=== PATIENT | female | born 1990 | race Caucasian/White ===

== ENCOUNTER 2020-05-17 01:35 | Inpatient (IN) | payer OTHER, SELFPAY ==
[2020-05-17] VITALS (61 sets, daily range): BP systolic 97–142; BP diastolic 55–85; PULSE 84–120; RESP 12–21; TEMP 36.4–37.2; O2SAT 90–100; BMI 36.1
--- NOTE | 2020-05-17 00:36 | PCM.HP.OB ---
- Problem List (1) 39 weeks gestation of Status: Acute (2) Primiparous Status: Acute (3) SROM (spontaneous rupture of membranes) Status: Acute History Date of Admission: 05/17/20 Final DANAE: 05/24/20 Gestational age: 39 Weeks and 0 Days History of this : This is a 29 year-old at 39 wks who presents with SROM for clear fluid at home. Number of Fetus(es): 1 NST - FHR Rate Baby A FHR Category:: Category I History Past Pregnancies: Past Pregnancies Delivery Date Name GA/ Weeks Outcome Route Wt Sex Labor Length Anesthesia Delivery Location Provider FOB Labs: See [facility] record Expected Delivery Method: Spontaneous Vaginal Assessment/Plan All Active Problems 39 weeks gestation of (Acute) Primiparous (Acute) SROM (spontaneous rupture of membranes) (Acute) This is a 29 year-old at 39 wk gestation who presents with SROM for clear fluid at home. - Routine intrapartum care - Pitocin as needed for augmentation - Epidural PRN pain control - GBS negative - Pelvis adequate and EFW expected to be < 4500 g - Anticipate
[2020-05-17 01:14] LABS: ROM Internal Control Test YES-OK TO RESULT pt. (Internal QC)
[2020-05-17 01:15] LABS: ROM Patient Test POSITIVE (Negative)
[2020-05-17] MEDS: Lactated Ringers 1,000 ML 50 ML IV (02:00)
[2020-05-17 02:17] LABS: Absolute Lymphocyte Count 1.38 X10^3/uL (0.83-4.51); Basophil# 0.03 X10^3/uL; Basophil% 0.2 % (0-1); Eosinophil# 0.12 X10^3/uL; Hematocrit 33.8 % (37-47); Hemoglobin 11.5 g/dL (12.0-15.0); Lymphocyte # 1.38 X10^3/ul (4.0); Mean Corpuscular Hgb 31.4 pg (27.0-32.0); Mean Corpuscular Volume 92.3 fL (81-99); Mean Platelet Vol. 9.7 fl (6.2-12.0); Monocyte# 0.88 X10^3/uL; NRBC Flagged by Analyzer 0 % (0-5); Neutrophil # 10.02 X10^3/uL (2.7-7.7); Platelet Count 274 K/mm3 (150-450); RBC Distribution Width CV 14.3 % (11.6-14.6); RBC Distribution Width SD 48.3 fl (35.1-43.9); Red Blood Count 3.66 M/mm3 (4.2-5.4); White Blood Count 12.5 K/mm3 (4.4-11.0)
[2020-05-17] MEDS: Oxytocin 30 units/NS 500 ml 30 UNITS/500 ML IV.SOLN IV (02:30)
[2020-05-17] MEDS: Lactated Ringers 500 ML 999 ML IV (02:35)
[2020-05-17] MEDS: fentaNYL-bupivacaine (epidural) 100 ML BAG EPIDURAL ×3 (03:28→12:34)
[2020-05-17] MEDS: Lactated Ringers 1,000 ML 200 ML IV ×2 (08:15→12:34)
--- NOTE | 2020-05-17 15:10 | PCM.PN.BLA ---
Progress Note At bedside to check on patient. Patient has been pushing for 4 hours. Initially good descent was being made. Now no additional descent noted. Cvx 10/100/0. Unable to perform vacuum assisted delivery given station. Category 2 tracing. Recommend section for arrest of descent. Discussed r/b/a of a section and patient desires to proceed. Consent obtained. STROKE Vital Signs/Narrative: Vital Signs Temp Pulse BP Pulse Ox 05/17/20 13:59 98.8 F 114 H 100 05/17/20 13:58 113 H 128/65 H 95 05/17/20 12:56 108 H 121/65 H 05/17/20 12:30 99.0 F 05/17/20 12:07 104 H 124/67 H
[2020-05-17] MEDS: Sodium Citrate/Citric Acid 30 ML UDC PO (15:35)
[2020-05-17] MEDS: Methylergonovine 0.2 MG/ML Ampul IM (16:34)
[2020-05-17] MEDS: Ketorolac 30 MG/ML Syringe IV ×2 (16:44→23:35)
[2020-05-17] MEDS: Oxytocin 30 units/NS 500 ml 30 UNITS/500 ML IV.SOLN 167 UNITS IV (17:15)
--- NOTE | 2020-05-17 17:24 | OP.PCM_ITS ---
Problem List (1) 39 weeks gestation of Status: Acute (2) Primiparous Status: Acute (3) SROM (spontaneous rupture of membranes) Status: Acute (4) Arrest of descent, delivered, current hospitalization Status: Acute (5) Delivery by section Status: Acute Report of Operation Date of Procedure: 05/17/20 Pre-Operative Diagnosis: 39 week gestation, primparous patient, SROM, arrest of descent Post-Operative Diagnosis: As above Surgery/Procedure Performed:: PLTCS via pfannenstiel incision Description of Surgical Findings:: VFI in vertex presentation. Uterus, bilateral tubes, bilateral ovaries normal-appearing. Normal-appearing placenta with a three-vessel cord. Type of Anesthesia:: Spinal Special Medications: None Specimen's removed: Placenta Drains: [place] Estimated Blood Loss (mL): 900 mL Fluids Replaced: 1000 L Description of Procedure: Patient was taken back to the operating room and a spinal was placed as epidural anesthesia was not adequate. Spinal anesthesia was found to be adequate. She was prepped and draped in the dorsal position with a leftward tilt. A Pfannenstiel skin incision was made with a scalpel and this was carried down to the underlying layer of fascia. The fascia was incised in midline. The fascia was extended lateral using Aguillon scissors. The fascia was dissected off the rectus muscles using combination of sharp and blunt dissection. The rectus muscles were in the midline. The peritoneum was entered sharply with good visualization of the bladder. The peritoneum and incision was extended bluntly. Bladder blade was inserted. A low transverse incision on the uterus was made with a scalpel. Uterine incision was extended bluntly. A nurse provided assistance with a hand from below to elevate the head to the hysterotomy. 's head was delivered easily through the hysterotomy in a flexed position. The shoulders and body of the infant were delivered without any force or delay. A viable female infant was delivered atraumatically. The cord was cut and cut immediately. Infant was handed off to the nursery staff. Cord gases were sent. The placenta was removed with manual extraction. The placenta was normal-appearing. The uterus was exteriorized. The uterus was cleared of all clot and debris. Uterus was closed with Vicryl in running locked fashion. Several additional [id number] sutures were placed for hemostasis. Good hemostasis was noted. The uterus was placed back into the abdomen. Brice was placed over the uterine incision. Due to pain the peritoneum was not closed. The rectus muscles were noted to be hemostatic. The fascia was closed with Vicryl in a running fashion. The subcutaneous space was irrigated and made hemostatic with Bovie cautery. The skin was closed with Monocryl in a subcuticular fashion. Steri-Strips and a dressing were placed. Instrument, needle, sponge counts were correct. The patient was taken recovery room in stable condition. Grafts/Implants Used: None - Complications None - Admit VTE Documentation VTE Present on Admission: No VTE Mechan Device Prophylaxis: SCD's VTE Pharm Prophylaxis ordered?: Yes Delivery Classification: [place] Indications for : Arrrest of Descent - Patient made it to complete and pushing. She was pushing for 4 hours and made it to 0 station. Baby was 7 plus lbs Drain: [place] to straight drain Cord Entanglement: None Cord Vessel Description: 3 Vessels Esitmated Blood Loss (ml): 900 Infant Gender: Female Antibiotic Given: Clindamycin 600mg IV x1 and Gentamicin 1.5mg/kg IV x1, Zithromax 500 mg/5 mL X1 Pt instructed on risks of surgery: Bleeding, Infection, Need for Future C- Sections, Injury to surrounding structure(s) including bowel and bladder
[2020-05-17] MEDS: Acetaminophen 500 MG Tablet 1000 MG PO (18:45)
[2020-05-17] MEDS: Lactated Ringers 1,000 ML 100 ML IV (20:38)
[2020-05-18] VITALS (7 sets, daily range): BP systolic 90–110; BP diastolic 52–73; PULSE 91–106; RESP 16–18; TEMP 36.1–36.6; O2SAT 95–98
[2020-05-18] MEDS: Acetaminophen 500 MG Tablet 1000 MG PO ×3 (00:02→11:44)
[2020-05-18 04:42] LABS: Hematocrit 27.5 % (37-47); Hemoglobin 9.1 g/dL (12.0-15.0); Mean Corp Hgb Conc 33.1 g/dL (32-36); Mean Corpuscular Hgb 30.5 pg (27.0-32.0); Mean Corpuscular Volume 92.3 fL (81-99); Mean Platelet Vol. 9.1 fl (6.2-12.0); Platelet Count 220 K/mm3 (150-450); RBC Distribution Width CV 14.6 % (11.6-14.6); RBC Distribution Width SD 49.1 fl (35.1-43.9); Red Blood Count 2.98 M/mm3 (4.2-5.4); White Blood Count 22.9 K/mm3 (4.4-11.0)
[2020-05-18] MEDS: Ketorolac 30 MG/ML Syringe IV ×2 (05:30→11:43)
[2020-05-18] MEDS: Enoxaparin 40 MG/0.4 ML Syringe SC (05:30)
[2020-05-18] MEDS: 0.9% Saline Lock 10 ML Syringe IV (05:31)
--- NOTE | 2020-05-18 11:23 | PN.OBGYN_ITS ---
Patient Problems: Active and Suspected Problems 39 weeks gestation of (Acute) Primiparous (Acute) SROM (spontaneous rupture of membranes) (Acute) Arrest of descent, delivered, current hospitalization (Acute) Delivery by section (Acute) Subjective: Pain well controlled. Ambulating and voiding without difficulty. Tolerating regular diet without nausea or vomiting. Lochia normal. Breast-feeding. Denies lightheadedness, dizziness, chest pain, shortness of breath, leg pain. Desires to stay tonight. - Physical Exam Vitals/I&O's: Vital Signs Temp Pulse Resp BP Pulse Ox 97.1 F L 91 16 93/53 L 98 05/18/20 07:49 05/18/20 07:49 05/18/20 07:49 05/18/20 07:49 05/18/20 04:05 Oxygen Delivery Method Room Air Weight: 197 lb 3.2 oz Body Mass Index (BMI) 36.1 Intake and Output for Last 24 Hours 05/16/20 05/17/20 05/19/20 23:59 23:59 00:59 Intake Total 3912.74 / 3912.74 620 / 620 Output Total 1700 / 1700 1200 / 1200 Balance 2212.74 / 2212.74 -580 / -580 General: Alert, No apparent distress HEENT: Atraumatic Abdomen: Soft, Non-Distended, - - ATTP, incision c/d/i Extremities: No edema, No Calf Tenderness Skin: No rashes Neurological: Neuro grossly intact Psych/Mental Status: Normal Affect, Appropriate Microbiology Past 72 Hours 05/17/20 02:10 Mucosa - Nose SARS-CoV-2 Antigen (Rapid) - Final Laboratory Results 05/18/20 04:35: WBC 22.9 H, RBC 2.98 L, Hgb 9.1 L, Hct 27.5 L, MCV 92.3, MCH 30.5, MCHC 33.1, RDW Std Deviation 49.1 H, RDW Coeff of Boogie 14.6, Plt Count 220, MPV 9.1 Current Medications Acetaminophen (Acetaminophen 500 Mg Tablet) 1,000 mg PO Q6 GABI Last Admin: 05/18/20 05:30 Dose: 1,000 mg Documented by: Bisacodyl (Bisacodyl 10 Mg Suppository) 10 mg RC UD PRN PRN Reason: If no BM Diphenhydramine HCl (Diphenhydramine 25 Mg Capsule) 25 mg PO Q6H PRN PRN PRN Reason: ITCHING Stop: 05/18/20 17:34 Enoxaparin Sodium (Enoxaparin 40 Mg/0.4 Ml Syringe) 40 mg SC DAILY [facility] Last Admin: 05/18/20 05:30 Dose: 40 mg Documented by: Hydrocortisone (Hydrocortisone 2.5% Crm) 1 applic TOPICAL TID PRN PRN; Protocol PRN Reason: Discomfort Lactated Ringer's () 1,000 mls @ 100 mls/hr IV .Q10H [facility] Last Infusion: 05/18/20 03:50 Dose: 0 mls/hr Documented by: Ibuprofen (Ibuprofen 600 Mg Tablet) 600 mg PO Q6H [facility] Ketorolac Tromethamine (Ketorolac 30 Mg/Ml Syringe) 30 mg IV Q6H [facility] Stop: 05/18/20 11:31 Last Admin: 05/18/20 05:30 Dose: 30 mg Documented by: Methylergonovine Maleate (Methylergonovine 0.2 Mg/Ml Ampul) 0.2 mg IM X1 PRN PRN Reason: Uterine Atony Last Admin: 05/17/20 16:34 Dose: 0.2 mg Documented by: Nalbuphine HCl (Nalbuphine 10 Mg/Ml Ampul) 5 mg IV Q3H PRN PRN PRN Reason: ITCHING Stop: 05/18/20 17:34 Naloxone HCl (Naloxone 0.4 Mg/Ml Syringe) 0.02 mg IV Q1M PRN PRN Reason: RR <10 and pt unresponsive Ondansetron HCl (Ondansetron 4 Mg/2 Ml Vial) 4 mg IV Q4H PRN PRN PRN Reason: Nausea Oxycodone HCl (Oxycodone 5 Mg Tablet) 5 - 10 mg PO Q4H PRN PRN PRN Reason: Pain Score 4-10 Prochlorperazine Edisylate (Prochlorperazine 10 Mg/2 Ml Vial) 10 mg IV Q6H PRN PRN PRN Reason: NAUSEA Senna/Docusate Sodium (Senna/Docusate Sodium 1 Tablet) 0 tablet PO DAILY [facility] Simethicone (Simethicone 80 Mg Tablet) 80 mg PO PCHS PRN PRN Reason: Indigestion/stomach pain Sodium Chloride (0.9% Saline Lock 10 Ml Syringe) 5 - 15 ml IV UD PRN PRN Reason: SALINE FLUSH Last Admin: 05/18/20 05:31 Dose: 10 ml Documented by: Medical Necessity - Tobacco Use Smoking Status: Never smoker Assessment/Plan All Active Problems 39 weeks gestation of (Acute) Primiparous (Acute) SROM (spontaneous rupture of membranes) (Acute) Arrest of descent, delivered, current hospitalization (Acute) Delivery by section (Acute) Pt is postoperative day 1 from a primary for arrest of descent. She is doing well today. Hemoglobin 9.1 which is appropriate postop. Discussed iron supplementation at home. Routine postop care. Anticipate discharge tomorrow.
[2020-05-18] MEDS: Senna/Docusate Sodium 1 Tablet PO (11:44)
[2020-05-18] MEDS: Ibuprofen 600 MG Tablet PO (18:22)
--- NOTE | 2020-05-18 19:20 | NURSING ---
Addendum entered by Nannette Mckeon 05/18/20 19:21: PHARMACY AWARE. Original Note: TYLENOL GIVEN AT 1822, UNABLE TO DOCUMENT ON MAY. VERIFIED WITH CHINMAY GARRETT.
[2020-05-19] MEDS: Acetaminophen 500 MG Tablet 1000 MG PO ×3 (00:56→12:05)
[2020-05-19] MEDS: Ibuprofen 600 MG Tablet PO ×3 (00:56→12:06)
[2020-05-19 02:48] VITALS: BP 113/70; PULSE 99; RESP 18; TEMP 36.3
[2020-05-19] MEDS: oxyCODONE 5 MG Tablet PO ×2 (02:58→08:16)
[2020-05-19 07:49] VITALS: BP 90/58; PULSE 80; RESP 16; TEMP 36.1; O2SAT 98
--- NOTE | 2020-05-19 08:35 | DCINST_ITS ---
Discharge Activity: May Not Drive - 2 weeks May resume sexual activity in: 6-8 weeks Additional Instructions: If you experience any of the following, contact your healthcare provider. * Bleeding that soaks a pad every hour for 2 hours * Fever 100.4 or higher * Unrelieved incision or abdominal pain * Swelling, redness, discharge or bleeding from your incision or episiotomy site * Your incision begins to separate * Problems urinating (including inability to urinate or burning while urinat ing). * Visual changes * Severe headache * Flu-like symptoms * Pain or redness in one of both of your breasts * Pain, warmth, tenderness or swelling in your legs, especially the calf area * Frequent nausea and vomiting * Symptoms of depression or anxiety If you experience any of the following, call 911 or go to the nearest Emergency Room. * Chest pain * Problems breathing * Seizure activity * Partial or complete paralysis of a body part, slurred speech, weakness or drooping of the face, or a sudden inability to walk or hold your balance Allergies/Adverse Reactions: Allergies amoxicillin Allergy (Verified 05/17/20 01:23) Rash cat dander Allergy (Verified 05/17/20 01:22) Other Sulfa (Sulfonamide Antibiotics) Allergy (Verified 05/17/20 01:23) Rash nut - unspecified Adverse Reaction (Verified 05/17/20 01:23) Anaphylaxis Medications to take at Discharge Caplet 1 tab PO DAILY 05/17/20 RX: Oxycodone [Oxyir] 5 - 10 mg PO Q4H PRN PRN 5 Days #20 tablet 05/19/20 The following prescriptions were given: RX: Oxycodone [Oxyir] 5 - 10 mg PO Q4H PRN PRN 5 Days #20 tablet PRN Reason: Pain Score 4-10 Follow-Up: Call to make an appointment with your doctor for an incision check in 1-2 weeks. You will also need a 6 week post- follow up appointment. Test results from this visit will be discussed in further detail at your follow- up appointment, if applicable. Primary Care Physician: Marina Urbina MD [Primary Care Provider] - Proposed Discharge Date: 05/19/20
--- NOTE | 2020-05-19 08:35 | PCM.PN.OB ---
Patient Problems: Active and Suspected Problems 39 weeks gestation of (Acute) Primiparous (Acute) SROM (spontaneous rupture of membranes) (Acute) Arrest of descent, delivered, current hospitalization (Acute) Delivery by section (Acute) Subjective: Patient seen at bedside. Feeling sore. Denies any dizziness, sob, or chest pain. Ambulating and voiding without difficulty. Breast feeding and reports going good, with little support. Desires discharge home today. - Physical Exam Vitals/I&O's: Vital Signs Temp Pulse Resp BP Pulse Ox 97.0 F L 80 16 90/58 L 98 05/19/20 07:49 05/19/20 07:49 05/19/20 07:49 05/19/20 07:49 05/19/20 07:49 Oxygen Delivery Method Room Air Weight: 197 lb 3.2 oz Body Mass Index (BMI) 36.1 Intake and Output for Last 24 Hours 05/17/20 05/18/20 05/19/20 22:59 23:59 23:59 Intake Total Output Total Balance General: Alert, Oriented x3 HEENT: Normocephalic Neck: Supple Lungs: Normal air movement Cardiovascular: Regular rate Abdomen: Soft, Non Tender, Passing Flatus Skin: No rashes Musculoskeletal: No Tenderness to Palpation of Joints or Extremities Lymphatic: No Cervical, Supraclavicular, or Inguinal Adenopathy Neurological: Cranial nerves II-XII grossly intact Microbiology Past 72 Hours 05/17/20 02:10 Mucosa - Nose SARS-CoV-2 Antigen (Rapid) - Final Current Medications Acetaminophen (Acetaminophen 500 Mg Tablet) 1,000 mg PO Q6 [facility] Last Admin: 05/19/20 06:32 Dose: 1,000 mg Documented by: Bisacodyl (Bisacodyl 10 Mg Suppository) 10 mg RC UD PRN PRN Reason: If no BM Enoxaparin Sodium (Enoxaparin 40 Mg/0.4 Ml Syringe) 40 mg SC DAILY [facility] Last Admin: 05/18/20 11:39 Dose: Not Given Documented by: Hydrocortisone (Hydrocortisone 2.5% Crm) 1 applic TOPICAL TID PRN PRN; Protocol PRN Reason: Discomfort Ibuprofen (Ibuprofen 600 Mg Tablet) 600 mg PO Q6H [facility] Last Admin: 05/19/20 06:31 Dose: 600 mg Documented by: Methylergonovine Maleate (Methylergonovine 0.2 Mg/Ml Ampul) 0.2 mg IM X1 PRN PRN Reason: Uterine Atony Last Admin: 05/17/20 16:34 Dose: 0.2 mg Documented by: Naloxone HCl (Naloxone 0.4 Mg/Ml Syringe) 0.02 mg IV Q1M PRN PRN Reason: RR <10 and pt unresponsive Ondansetron HCl (Ondansetron 4 Mg/2 Ml Vial) 4 mg IV Q4H PRN PRN PRN Reason: Nausea Oxycodone HCl (Oxycodone 5 Mg Tablet) 5 - 10 mg PO Q4H PRN PRN PRN Reason: Pain Score 4-10 Last Admin: 05/19/20 08:16 Dose: 5 mg Documented by: Prochlorperazine Edisylate (Prochlorperazine 10 Mg/2 Ml Vial) 10 mg IV Q6H PRN PRN PRN Reason: NAUSEA Senna/Docusate Sodium (Senna/Docusate Sodium 1 Tablet) 0 tablet PO DAILY [facility] Last Admin: 05/18/20 11:44 Dose: 1 tablet Documented by: Simethicone (Simethicone 80 Mg Tablet) 80 mg PO PCHS PRN PRN Reason: Indigestion/stomach pain Last Admin: 05/18/20 18:32 Dose: 80 mg Documented by: Sodium Chloride (0.9% Saline Lock 10 Ml Syringe) 5 - 15 ml IV UD PRN PRN Reason: SALINE FLUSH Last Admin: 05/18/20 05:31 Dose: 10 ml Documented by: Medical Necessity - Tobacco Use Smoking Status: Never smoker Assessment/Plan All Active Problems 39 weeks gestation of (Acute) Primiparous (Acute) SROM (spontaneous rupture of membranes) (Acute) Arrest of descent, delivered, current hospitalization (Acute) Delivery by section (Acute) POD #2 Primary C/S Routine care Pain control Breast feeding support Discharge home with follow up in office
[2020-05-19] MEDS: Enoxaparin 40 MG/0.4 ML Syringe SC (09:38)
[2020-05-19] MEDS: Senna/Docusate Sodium 1 Tablet PO (09:38)
[2020-05-19 12:34] VITALS: BP 104/71; PULSE 91; RESP 16; TEMP 36.5; O2SAT 98
== END 2020-05-19 13:55 | disposition home or self-care (01) | DRG 788 ==
LOC: WPOUT 01:38 → WP 01:38
PROVIDERS: Admitting Provider Obstetrics & Gynecology; PCP Family Medicine; Visit Provider Obstetrics & Gynecology
DX: O62.1 Secondary uterine inertia (principal); Z3A.39 39 weeks gestation of pregnancy; Z37.0 Single live birth
CPT/HCPCS: 59025; 59050; 84112; 85025; 85027; 86850; 86900; 86901; 87426; 99218; 99251; J7120; A4216; G0378; G0463; J2405

== ENCOUNTER 2022-10-25 09:30 | Inpatient (IN) | payer OTHER, SELFPAY ==
--- NOTE | 2022-10-20 12:46 | PCM.HP.BLA ---
History and Physical Date of Admission: 10/25/22 HPI: The patient is a 32 year old female presenting for pre-operative visit. She is scheduled for , for 39 weeks, previous c/s on 10/25/22. Procedure discussed along with risks, benefits and complications. Other alternatives discussed for management. Consent form signed? Yes. ? ? PAST MEDICAL HISTORY PAST MEDICAL HISTORY Diagnosis Date ? Acne ? ? Infertility, female ? ? Leiomyoma ? ? ultrasound report 2016 ? Miscarriage 01/2022 ? Nut allergy ? ? ? PAST SURGICAL HISTORY PAST SURGICAL HISTORY Procedure Laterality Date ? DELIVERY ONLY ? 05/17/2020 ? PAST SURGICAL HISTORY OF ? 04/07/2007 ? wisdom teeth pulled ? ? ? CURRENT MEDICATIONS Current Outpatient Medications Medication Sig Dispense Refill ? famotidine (PEPCID ORAL) Take by mouth. ? ? ? Breast Pump Use as directed 1 Each 0 ? albuterol HFA (PROVENTIL HFA, VENTOLIN HFA) 90 mcg/actuation inhaler Inhale 2 Puffs as instructed every 6 hours as needed for wheezing/shortness of breath. 1 Each 0 ? EPINEPHrine (EPIPEN) 0.3 mg/0.3 mL auto-injector Use as directed. 2 Each 2 ? Anxbyief-Ct-Clm-Fe-FA ( VITAMIN) tab Take 1 tablet by mouth. ? ? ? cetirizine (ZYRTEC) 10 mg tablet Take 1 tablet by mouth once daily. 90 tablet 3 ? metroNIDAZOLE (FLAGYL) 500 mg tablet Take 500 mg by mouth three times daily. (Patient not taking: Reported on 10/20/2022) ? ? ? predniSONE (DELTASONE) 20 mg tablet Take 20 mg by mouth once daily. (Patient not taking: Reported on 10/20/2022) ? ? ? MEDICATION, NON-DATABASE Paxlovid take 3 tablets (2 nirmatrelvir tabs and 1 ritonavir tabs) in the morning and take 3 tablets in the evening (2 nirmatrelvir and 1 ritonavir tabs) (Patient not taking: Reported on 09/06/2022) 30 Each 0 ? No current facility-administered medications for this visit. ? ? ALLERGIES: Amoxicillin-Pot Clavulanate, Cats, Nut - Unspecified, and Sulfa (Sulfonamide Antibiotics) ? PERSONAL HISTORY: SOCIAL HISTORY Social History ? Tobacco Use ? Smoking status: Never ? Smokeless tobacco: Never Vaping Use ? Vaping Use: Never used Substance Use Topics ? Alcohol use: Not Currently ? ? Alcohol/week: 5.0 - 37.5 standard drinks of alcohol ? ? Types: 3 - 35 Standard drinks or equivalent, 2 - 3 Glasses of Wine (5oz) per week ? Drug use: No ? FAMILY HISTORY: FAMILY HISTORY FAMILY HISTORY Problem Relation Age of Onset ? No Known Problems Mother ? ? Food Allergy Father ? ? other (shellfish allergy) Father ? ? and nut allergies ? other (cat allergy) Father ? ? other (shellfish allergy) Sister ? ? x 2 ? other (cat allergy) Sister ? ? and nut allergy ? Stroke Maternal Grandmother ? ? Dementia Maternal Grandmother ? ? other (heart disease) Maternal Grandmother ? ? Colon Cancer Maternal Grandfather ? ? Breast Cancer Paternal Grandmother 80 ? Heart Paternal Grandfather ? ? other (Diabetes type 1) Maternal Aunt ? ? Breast Cancer Maternal Aunt 61 ? triple neg. invassive ductal ? Food Allergy Daughter ? ? ? REVIEW OF SYMPTOMS: GENERAL: denies fevers or chills ENDOCRINOLOGY: has not been on steroids Cardiology : denies palpitations or chest pain Respiratory: denies SOB or cough Hematology: denies history of prolonged bleeding or easy bruising or VTE Allergy: Denies history of personal or family history of allergy to anesthesia ? PHYSICAL EXAMINATION: ? VITALS: Last menstrual period 01/18/2022, currently . ? GENERAL: The patient is well nourished, well hydrated in no acute distress. , The patient is oriented to time, place, and person. NECK: Supple. No lynphadenopathy, normal thyroid, no thyromegaly. LUNGS: Clear to auscultation bilaterally. no wheezes, rhonchi or rales HEART: Regular rate and rhythm, Normal heart sounds, and No murmurs or gallops GENITALIA: Normal external genitalia, Urethral meatus normal, Bladder nontender, normal vagina and normal vaginal tone, normal cervix, normal uterus, size and consistency, normal adnexa without masses or tenderness, and perineum WNL WET PREP: Not indicated ? IMPRESSION: Estimated Date of Delivery: 11/01/22 ? PLAN: The risks/benefits/alternatives and personal involved for the planned were reviewed with the patient. Her questions were answered to her satisfaction and she desires to proceed. Consent was signed. I reviewed with her postop instructions and expectations. ? ? I have reviewed and updated past medical and surgical history, medications and allergies
[2022-10-25] VITALS (14 sets, daily range): BP systolic 106–133; BP diastolic 54–85; PULSE 72–94; RESP 12–20; TEMP 36.4–37; O2SAT 97–99; BMI 37.7
[2022-10-25] MEDS: Lactated Ringers 1,000 ML 999 ML IV (10:40)
[2022-10-25] MEDS: Acetaminophen 500 MG Tablet 1000 MG PO ×3 (10:40→22:25)
[2022-10-25 11:05] LABS: Absolute Lymphocyte Count 1.57 X10^3/uL (0.83-4.51); Absolute Neutrophil Count 6.3 X10^3/uL (2.0-7.7); Basophil# 0.03 X10^3/uL; Basophil% 0.4 % (0-1); Eosinophil# 0.07 X10^3/uL; Eosinophils% 0.8 % (0-5); Hematocrit 36.5 % (37-47); Hemoglobin 11.8 g/dL (12.0-15.0); Lymphocyte # 1.57 X10^3/ul (0.83-4.51); Lymphocyte % 18.4 % (19-41); Mean Corp Hgb Conc 32.3 g/dL (32-36); Mean Corpuscular Hgb 29.9 pg (27.0-32.0); Mean Corpuscular Volume 92.6 fL (81-99); Mean Platelet Vol. 9.8 fl (6.2-12.0); Monocyte% 5.9 % (0-10); NRBC Flagged by Analyzer 0 % (0-5); Neutrophil # 6.28 X10^3/uL (2.7-7.7); Neutrophil % 73.4 % (47-70); Platelet Count 268 K/mm3 (150-450); RBC Distribution Width CV 15.1 % (11.6-14.6); RBC Distribution Width SD 51.2 fl (35.1-43.9); Red Blood Count 3.94 M/mm3 (4.2-5.4); White Blood Count 8.5 K/mm3 (4.4-11.0)
[2022-10-25] MEDS: Sodium Citrate/Citric Acid 30 ML UDC PO (11:39)
[2022-10-25] MEDS: Lactated Ringers 1,000 ML 150 ML IV (11:44)
[2022-10-25 11:50] LABS: Syphilis Antibodies Non-reactive
[2022-10-25] MEDS: Cefazolin 2 GM in 0.9% Normal Saline 100 ML IV (12:20)
--- NOTE | 2022-10-25 12:46 | EX.PCM.OBRPT ---
Maternal Data Information Final DANAE: 11/01/22 Gestational age: 39 0/7 Details Operative Information Date of Procedure: 10/25/22 Pre-Operative Diagnosis: previous c/s Post-Operative Diagnosis: same Indications for : Repeat Elective Classification: Scheduled Procedure Type: low transverse rn or lpn #1: Jun Arnold Type of Anesthesia: Spinal Anesthesiologist: Rafat Floyd Antibiotic Given: Ancef 2 grams IV x1 Drain: [place] to straight drain Estimated Blood Loss: 700 Fluids Replaced: 600 Procedure Start Time: 12:29 Procedure Stop Time: 12:55 Time of Delivery: 12:32 Findings Description of Procedure: The patient was taken to the operating room. She was prepped and draped in the dorsal supine position with a leftward tilt. A Pfannenstiel skin incision was made approximately 2 cm above the symphysis pubis and carried through to underlying layer fascia with the scalpel. The fascia was incised incised in the midline and extended laterally with blunt dissection. The fascia was dissected off the rectus muscles with blunt dissection. The rectus muscles were in the midline and the peritoneum was entered bluntly. The peritoneal incision was stretched and the bladder blade was placed. The uterine incision was made in a low transverse fashion with the scalpel and extended superiorly and inferiorly with blunt dissection. The amniotic membranes were ruptured bluntly and clear amniotic fluid returned. The infant's head was brought to the incision in the flexed position and delivered without difficulty. The remainder of the infant was delivered with gentle traction and fundal pressure in the standard fashion. The mouth and nares were bulb suctioned. The cord was clamped and cut as the infant was stimulated. Cord clamping was delayed. The was handed off to the waiting nursing staff. The placenta was delivered with fundal massage and gentle traction in the standard fashion. The uterus was exteriorized and cleared of all clots and debris. The cervix was dilated with a ring forcep. The uterine incision was closed with #1 Vicryl in a running locked fashion. The incision was examined and was found to be hemostatic. The uterus was placed back into the peritoneal cavity and hemostasis was again confirmed. The rectus muscles were examined and any bleeding was Bovie cauterized. The parietal peritoneum and rectus muscles were closed en bloc with an 0 Vicryl running suture. The surgical teams outer gloves were then changed. The rectus fascia was examined and any bleeding was Bovie cauterized and the rectus fascia was closed with 1 Vicryl suture in a running standard fashion. The subcutaneous tissue was examining and any bleeding was Bovie cauterized. The subcutaneous tissue was reapproximated with 3-0 Vicryl suture. The skin was closed in a subcuticular fashion by the CAFETERIA CASHIER with me present in the labor and delivery suite. I performed the remainder of the procedure with assistance. All sponge, lap, and needle counts were correct. The patient was taken to her room for recovery in a stable condition. Presentation: Positive for Vertex Amniotic Membrane Rupture Type: Artificial Amniotic Fluid Description: Clear Placental Delivery Description: Expressed Placenta Disposition: [facility] Specimen(s) Sent to Pathology: none Cord Vessel Description: 3 Vessels Cord Entanglement: Around neck x 1, loose Nuchal Cord Compression: Without compression Infant A Gender: Female (Kiara) (1 minute): 8 (5 minute): 9 Delayed Cord Clamping: Yes Complications Complications: none
[2022-10-25] MEDS: Oxytocin 15 Units/NS 250ml 15 UNITS/250 ML IV.SOLN 83 UNITS IV (13:18)
[2022-10-25] MEDS: Ketorolac 30 MG/ML Syringe IV ×2 (14:05→20:44)
[2022-10-25] MEDS: Lactated Ringers 1,000 ML 100 ML IV (16:28)
[2022-10-26 00:55] VITALS: BP 110/70; PULSE 107; RESP 16; TEMP 36.6; O2SAT 98
[2022-10-26] MEDS: 0.9% Saline Lock 10 ML Syringe IV (02:13)
[2022-10-26] MEDS: Enoxaparin 40 MG/0.4 ML Syringe SC (02:13)
[2022-10-26] MEDS: Ketorolac 30 MG/ML Syringe IV ×2 (02:13→07:56)
[2022-10-26] MEDS: Acetaminophen 500 MG Tablet 1000 MG PO ×4 (04:19→22:45)
[2022-10-26 04:40] VITALS: BP 112/69; PULSE 106; RESP 18; TEMP 36.6; O2SAT 97
[2022-10-26 05:58] LABS: Hematocrit 30.5 % (37-47); Mean Corp Hgb Conc 32.8 g/dL (32-36); Mean Corpuscular Hgb 30.5 pg (27.0-32.0); Mean Platelet Vol. 9.7 fl (6.2-12.0); Platelet Count 190 K/mm3 (150-450); RBC Distribution Width CV 15.4 % (11.6-14.6); RBC Distribution Width SD 52.6 fl (35.1-43.9); Red Blood Count 3.28 M/mm3 (4.2-5.4); White Blood Count 14.3 K/mm3 (4.4-11.0)
[2022-10-26 08:12] VITALS: BP 100/61; RESP 16; O2SAT 97
--- NOTE | 2022-10-26 08:49 | PCM.PN.OB ---
Subjective Subjective denies complaints Objective Data Objective Data Vital Signs: Vital Signs Temp Pulse Resp BP Pulse Ox O2 Del Method 97.8 F 106 H 16 100/61 97 Room Air 10/26/22 04:40 10/26/22 04:40 10/26/22 08:12 10/26/22 08:12 10/26/22 08:12 10/26/22 08:12 Oxygen Delivery Method Room Air Weight: 209 lb 10.554 oz Body Mass Index (BMI) 37.7 Intake & Output: Intake and Output for Last 24 Hours 10/24/22 10/25/22 10/26/22 23:59 23:59 23:59 Intake Total 2077.5 / 2077.5 Output Total 1650 / 1650 800 / 800 Balance 427.5 / 427.5 -800 / -800 Lab / Micro Data 10/26/22 05:51 Labs: Laboratory Results - last 24 hr 10/25/22 10:40: WBC 8.5, RBC 3.94 L, Hgb 11.8 L, Hct 36.5 L, MCV 92.6, MCH 29.9, MCHC 32.3, RDW Std Deviation 51.2 H, RDW Coeff of Boogie 15.1 H, Plt Count 268, MPV 9.8, Immature Gran % (Auto) 1.100 H, Neut % (Auto) 73.4 H, Lymph % (Auto) 18.4 L, [place] % (Auto) 5.9, Eos % (Auto) 0.8, Baso % (Auto) 0.4, Absolute Neuts (auto) 6.3, Absolute Lymphs (auto) 1.57, Nucleated RBC % 0, Syphilis Total Ab Non-reactive, Blood Type A POSITIVE, Antibody Screen NEGATIVE 10/26/22 05:51: WBC 14.3 H, RBC 3.28 L, Hgb 10.0 L, Hct 30.5 L, MCV 93.0, MCH 30.5, MCHC 32.8, RDW Std Deviation 52.6 H, RDW Coeff of [place]ogie 15.4 H, Plt Count 190, MPV 9.7 Physical Exam Const alert, oriented x3 and no apparent distress HEENT normocephalic GI soft to palpation, non-tender and non-distended GI Narrative: fundus firm, mid & below umbilicus Incision - bandage c/d/i Extremity normal to inspection and no calf tenderness Assessment & Plan (1) Delivery by section: COMMENT: POD#1 PLAN: Plan Heme - HDS, cbc reviewed ID - AF, no signs infection GI/ - no issues Routine care
[2022-10-26] MEDS: Senna/Docusate Sodium 1 Tablet PO (11:02)
[2022-10-26] MEDS: SimETHICONE 80 MG Chewable Tablet PO (12:44)
[2022-10-26 13:34] VITALS: BP 99/66; PULSE 76; RESP 16; O2SAT 98
[2022-10-26] MEDS: Ibuprofen 600 MG Tablet PO ×2 (13:39→19:42)
[2022-10-26] MEDS: oxyCODONE 5 MG Tablet PO ×2 (15:44→19:53)
[2022-10-26 19:39] VITALS: BP 110/75; PULSE 92; RESP 16; TEMP 36.8; O2SAT 99
[2022-10-27] MEDS: oxyCODONE 5 MG Tablet PO ×5 (00:09→19:48)
[2022-10-27] MEDS: Ibuprofen 600 MG Tablet PO ×4 (01:47→19:49)
[2022-10-27] MEDS: Enoxaparin 40 MG/0.4 ML Syringe SC (01:49)
[2022-10-27 02:29] VITALS: BP 100/60; PULSE 73; RESP 16; TEMP 36.6; O2SAT 97
[2022-10-27] MEDS: Acetaminophen 500 MG Tablet 1000 MG PO ×4 (05:00→22:47)
[2022-10-27 07:54] VITALS: BP 101/56; PULSE 80; RESP 16; TEMP 36.5; O2SAT 97
--- NOTE | 2022-10-27 08:07 | PCM.PROGNOTE ---
Subjective Subjective patient seen at bedside, doing well. Patient reports good pain control. lochia mild. Reports pain worse today. Tolerating regular diet. Passing flatus Objective Data Objective Data Vital Signs: Vital Signs Temp Pulse Resp BP Pulse Ox O2 Del Method 97.7 F L 80 16 101/56 L 97 Room Air 10/27/22 07:54 10/27/22 07:54 10/27/22 07:54 10/27/22 07:54 10/27/22 07:54 10/27/22 07:54 Oxygen Delivery Method Room Air Weight: 95.1 kg Body Mass Index (BMI) 37.7 Intake & Output: Intake and Output for Last 24 Hours 10/25/22 10/26/22 10/27/22 23:59 23:59 23:59 Intake Total 2077.5 / 2077.5 Output Total 1650 / 1650 1500 / 1500 Balance 427.5 / 427.5 -1500 / -1500 Lab / Micro Data 10/26/22 05:51 Physical Exam Narrative Exam: Dressing dry and intact. Fundus firm. Const alert and oriented x3 General Appearance: cooperative HEENT normocephalic Neck General: normal visual inspection GI soft to palpation and non-distended GI Narrative: Fundus firm Extremity normal to inspection and no calf tenderness Skin no rashes or lesions noted Neuro oriented x3 and CN's II-XII intact bilaterally Psych mental status grossly normal Assessment & Plan Assessment/Plan (1) Delivery by section: PLAN: Plan POD#2 , Doing well Routine care pain mgmt monitor VS ambulation Plan dc home tomorrow - plan for pain control today
--- NOTE | 2022-10-27 08:19 | DCINST_ITS ---
Discharge Instructions Diet Discharge Diet: No restrictions Activity May resume sexual activity in: 6-8 weeks Lifting Restrictions: 25 Dressing / Incision Call your doctor if your incision/area has: Continuous Slow Oozing, Sudden Increased Bleeding, Increased Pain/ Swelling, Increased Redness, Foul Smelling Discharge and Swelling at the incision site Call your doctor if you observe: Fever of 101 or Higher, Inability to urinate, Using more than 1 pad per hour and Uncontrolled pain Additional Dressing/Incision Instructions:: remove dressing at 7 days post op- if it becomes saturated prior to that time you may remove it. Let soap and water run over incision sites and dab dry. keep incision clean and dry. Follow Up Care Please Follow Up With: Mckenzie Bentley MD When: 1-2 weeks post of incision check and again at 6 weeks post . [phone] Test Results: Test results from this visit will be discussed in further detail at your follow- up appointment, if applicable. Discharge Plan Admission Admit Date/Time: 10/25/22 09:30 Attending Provider: Joann Pollard Primary Care Provider: Marina Urbina Discharge Orders/Prescriptions Prescriptions: New acetaminophen 500 mg Tablet 1,000 mg PO Q6H Qty: 0 0RF ibuprofen 600 mg Tablet 600 mg PO Q6H Qty: 0 0RF oxycodone 5 mg Tablet 5 - 10 mg PO Q4H PRN PRN (Reason: Pain Score 4-10) 5 Days Qty: 15 0RF sennosides-docusate sodium [Stool Softener-Stimulant Laxat] 8.6-50 mg Tablet 1 - 2 tab PO DAILY Qty: 0 0RF simethicone 80 mg Tablet,Chewable 80 mg PO PCHS PRN (Reason: Indigestion/stomach pain) Qty: 0 0RF Continued Caplet 1 tab PO DAILY Referrals / Follow Up: Marina Urbina MD [Primary Care Provider] - Disposition Disposition (needs filled in before D/C Order can be placed): Home, Self Care
[2022-10-27] MEDS: Senna/Docusate Sodium 1 Tablet PO (10:42)
[2022-10-27 13:15] VITALS: BP 124/80; PULSE 80; RESP 16; TEMP 36.4; O2SAT 97
[2022-10-27 19:56] VITALS: BP 103/60; PULSE 81; RESP 16; O2SAT 100
[2022-10-28] MEDS: Enoxaparin 40 MG/0.4 ML Syringe SC (01:57)
[2022-10-28] MEDS: Ibuprofen 600 MG Tablet PO ×3 (01:57→14:08)
[2022-10-28] MEDS: oxyCODONE 5 MG Tablet PO ×3 (01:57→12:55)
[2022-10-28 02:01] VITALS: BP 112/74; PULSE 93; RESP 16; O2SAT 97
[2022-10-28] MEDS: Acetaminophen 500 MG Tablet 1000 MG PO ×2 (04:51→10:24)
--- NOTE | 2022-10-28 08:23 | PCM.PN.OB ---
Subjective Subjective Patient is doing well. Pain control is better today. She is ambulating and voiding without difficulty. She is tolerating regular diet without nausea or vomiting. She denies lightheadedness, dizziness, chest pain, shortness of breath, leg pain. Lochia is normal. She is breast-feeding without complaints. She desires discharge today. Objective Data Objective Data Vital Signs: Vital Signs Temp Pulse Resp BP Pulse Ox O2 Del Method 97.6 F L 93 16 112/74 97 Room Air 10/27/22 13:15 10/28/22 02:01 10/28/22 02:01 10/28/22 02:01 10/28/22 02:01 10/28/22 02:01 Oxygen Delivery Method Room Air Weight: 209 lb 10.554 oz Body Mass Index (BMI) 37.7 Intake & Output: Intake and Output for Last 24 Hours 10/26/22 10/27/22 10/28/22 23:59 23:59 23:59 Output Total 1500 / 1500 Balance -1500 / -1500 Lab / Micro Data 10/26/22 05:51 Physical Exam Const alert and no apparent distress General Appearance: comfortable Resp normal respiratory effort GI soft to palpation GI Narrative: ATTP, FF@U-1, dressing c/d/i Extremity normal to inspection and no calf tenderness Assessment & Plan (1) Delivery by section: COMMENT: POD#3 PLAN: Pain is improved this morning. She desires to go home today. Meeting milestones for discharge. DC instructions were reviewed and she has follow-up in the office for an incision check
[2022-10-28 08:29] VITALS: BP 112/74; PULSE 74; RESP 16; TEMP 36.7; O2SAT 98
[2022-10-28] MEDS: Senna/Docusate Sodium 1 Tablet PO (10:24)
[2022-10-28 13:01] VITALS: BP 119/78; PULSE 86; RESP 16; O2SAT 99
--- NOTE | 2022-11-01 15:21 | NURSING ---
Follow up call: had Post op appt today with Dr Pollard denies questions or concerns feels good, incision healing well. baby also doing well, feeding well denies questions or concerns. Reports she was happy with her care and everyone was great!
== END 2022-10-28 15:05 | disposition home or self-care (01) | DRG 788 ==
PROVIDERS: Admitting Provider Obstetrics & Gynecology; PCP Family Medicine; Visit Provider Obstetrics & Gynecology
PROC: 10D00Z1 Extraction of Products of Conception, Low, Open Approach (ICD-10-PCS; CPT 59514; principal; 2022-10-25 11:45)
DX: O34.219 Maternal care for unspecified type scar from previous cesarean delivery (principal); O69.81X0 Labor and delivery complicated by cord around neck, without compression, not applicable or unspecified; Z37.0 Single live birth; Z3A.39 39 weeks gestation of pregnancy
CPT/HCPCS: 59025; 59050; 85025; 85027; 86780; 86850; 86900; 86901; 99221; J7120; A4216; G0378; J2405